=== PATIENT | male | born 1945 | race Caucasian/White ===

== ENCOUNTER 2021-06-18 13:18 | Emergency (ER) | payer MEDICARE, BC ==
[~2021-06-18] VITALS: Ht 188 cm; Wt 90.7 kg
[2021-06-18 15:10] VITALS: BP 174/88
== END 2021-06-18 16:15 | disposition home or self-care (01) ==
LOC: ER 13:18
DX: S01.01XA Laceration without foreign body of scalp, initial encounter (principal); I10 Essential (primary) hypertension; Z88.0 Allergy status to penicillin; W01.190A Fall on same level from slipping, tripping and stumbling with subsequent striking against furniture, initial encounter; Y93.89 Activity, other specified; Y92.89 Other specified places as the place of occurrence of the external cause; Y99.8 Other external cause status
CPT/HCPCS: 12002; 70450